=== PATIENT | female | born 1960 | race Caucasian/White ===

== ENCOUNTER 2025-03-10 19:20 | Emergency (ER) | payer OTHER, SELFPAY ==
--- OUTSIDE RECORDS SUMMARY | 2025-03-09 11:30 | XMS_ITS | Encounter Summary ---
Author Organization [facility] er Address [address] [place] [address] Care Team Providers Care Ultrasound Tester Name Role Phone Unavailable Primary Care Provider Unavailabl e Reason for Referral * Consultation (Routine) - Authorized Specialty Diagnoses / Procedures Referred By Roxanne guzman Referred To Contact Family Medicine Diagnoses BRBPR (bright red blood per rectum) Socorro Teague DNP, SKYE, COLLAR TURNER OPERATOR [address] [place] [address] Phone: tel: fax: [facility] [address] [address] Phone: tel: fax: Referral ID Status Reason Start Date Expiration Date Visits Requested Visits Authorized [id number] Authorized Specialty Services Required 03/09/2025 03/09/2026 1 1 Reason for Visit * Reason Comments Rectal Bleeding Constipation X1 week, taking laxa tives Encounter Details Date Type Department Care Team (Late st Contact Info) Description 03/09/2025 11:30 AM CDT Office Visit [facility] [address] [phone] Socorro Teague DNP, APRON MAN, COLLAR TURNER OPERATOR [address] [place] [id number] Blood in stool (Primary Dx) Social History Tobacco Use Types Packs/Day Years Used Date Smoking Tobacco: Former Cigarettes Smokeless Tobacco: Never Tobacco Cessation:Counseling Given: Not Answered Alcohol Use Standard Drinks/Week Comments Not Currently 0 (1 standard drink = 0.6 oz pur e alcohol) Comments No Sex and Gender Information Value Date Recorded Sex Assigned at Not on file Legal Sex Female 11:20 AM CDT Gender Identity Not on file Sexual Orientation Not on file documented as of this encounter Last Filed Vital Signs Vital Sign Reading Time Taken Comments Blood Pressure 139/70 03/09/2025 11:33 AM CDT Pulse 82 03/09/2025 11:33 AM CDT Temperature 36.6 C (97.8 F) 03/09/2025 11:33 AM CDT Respiratory Rate 18 03/09/2025 11:33 AM CDT Oxygen Saturation 95% 03/09/2025 11:33 AM CDT Inhaled Oxygen Concentration - - Weight 65.9 kg (145 lb 3.2 oz) 03/09/2025 11:33 AM CDT Height - - Body Mass Index - - documented in this encounter Progress Notes * Socorro Teague, MIA, APRON MAN, COLLAR TURNER OPERATOR - 03/09/2025 11:30 AM CDT Patient ID: Hanny Voss is a 65 y.o. year old female HPI Hanny Voss is a 65 y.o. year old female who presents to the [facility] with complaints of Chief Complaint Patient presents with Rectal Bleeding Constipation X1 week, taking laxatives Presents to the Acute Care clinic reporting 1 week onset of constipation. No history of same. Constipation relieved with OTC laxatives. Initially patient describes stools as black but then states this is not the case and she is having brown mucous discharge with blood in it. Onset was three days ago. Frequency of bowel movements: 2-3 per day for the past 2 days. Passing Small amount of stool eachtime. Notes stools are mucousy. Patient reports there is not pain with defecation. She denies recent NSAID or ASA use, recent change in diet, sick contacts, past GI issues or hemorrhoids. Risk for GI bleed includes: Travel from [place] 1 month ago, reported GI bleeding 6-7 years ago (unclear circumstances). Denies constitutional symptoms (fever, weight loss), nausea, vomiting, tenesmus, hematuria, burning, frequency, rashes, bruising, SOB, chest pain, dizziness, vertigo. Today's visit was facilitated via telephone benefits specialist recruiter throughout the entirety of the visit. The following portions of the patient's chart were reviewed in this encounter and updated as appropriate: Tobacco Allergies Meds Problems Med Hx Surg Hx OB Status Fam Hx Review of Systems Pertinent items are noted in HPI. Objective Blood pressure 139/70, pulse 82, temperature 36.6 ??C (97.8 ??F), temperature source Temporal, resp. rate 18, weight 65.9 kg (145 lb 3.2 oz), SpO2 95%, not currently . Physical Exam Vitals and nursing note reviewed. Constitutional: Appearance: Normal appearance. HENT: Mouth/Throat: Mouth: Mucous membranes are moist. Eyes: Conjunctiva/sclera: Conjunctivae normal. Cardiovascular: Rate and Rhythm: Normal rate and regular rhythm. Heart sounds: Normal heart sounds. No murmur heard. Pulmonary: Effort: Pulmonary effort is normal. No respiratory distress. Breath sounds: Normal breath sounds. Abdominal: General: Bowel sounds are normal. There is no distension. Palpations: Abdomen is soft. There is no mass. Tenderness: There is abdominal tenderness. There is no right CVA tenderness, left CVA tenderness orguarding. Genitourinary: Rectum: Normal. Comments: No external hemorrhoids or anal fissure noted. No active bleeding. Rectal vault empty. Good tone. Musculoskeletal: General: Normal range of motion. Cervical back: Normal range of motion and neck supple. Right lower leg: No edema. Left lower leg: No edema. Skin: General: Skin is warm and dry. Neurological: General: No focal deficit present. Mental Status: She is alert and oriented to person, place, and time. Psychiatric: Mood and Affect: Mood normal. Behavior: Behavior normal. Assessment/Plan Diagnoses and all orders for this visit: Blood in stool Patient overall looks well on exam with normal vital signs. She is without alarm symptoms such as dizziness, SOB however is over the ago of 48 with past history of GI bleeding. Unknown if colon cancer screening is UTD. Differential diagnosis to include hemorrhoids, diverticulosis, colorectal cancer, colitis, IBS. Plan to obtain lab work to risk stratify. Hgb <9 should be referred to ED for expedient evaluation. Red flags (worsening abdominal pain, fevers, N/V, dizziness, SOB, chest pain, dizziness, ect) that would indicate the need for urgent/emergent reevaluation were reviewed prior to dismissal. She should follow up with family medicine in about 1 week for recheck. Omeprazole for GI prophylaxis. She was instructed to avoid medications such as NSAIDs and aspirin. The patient was discharged in stable condition with all questions being answered and addressed to the best of my ability. There were no apparent learning barriers identified when reviewing discharge instructions and discharge recommendations. Strict return precautions were reviewed in detail with The patient. When to proceed to the Emergency Room was reviewed with The patient. The patient verbalized understanding of the return precautions. Recommended close follow up with their Primary Care Provider. If they do not have a Primary Care Provider I have placed a referral to primary care so they can establish care. The patient verbalized understanding and agreement with the diagnosis and treatment plan. - CBC Branch Off w/Diff; Future - Comprehensive metabolic panel; Future - Immunochemical Fecal Occult Blood (iFOBT)- outpatient; Future - Protime-INR; Future - Ambulatory referral to Family Practice - omeprazole (PriLOSEC) [address] capsule; Take 1 capsule (20 mg total) by mouth 1 (one) time each day Do not crush or chew. Preferred method of communication: telephone documented in this encounter Plan of Treatment Scheduled Orders Name Type Priority Associated Diagnoses Orde r Schedule Immunochemical Fecal Occult Blood (iFOBT)- outpatient Lab Routine Blood in stool 1 Occurrences starting 03/09/2025 until 03/09/2026 Scheduled Referrals Name Type Priority Associated Diagnoses Order Schedule Ambulatory referral to Family Practice Outpatient Referral Routine Blood in stool Ordered: 03/09/2025 documented as of this encounter Results * Comprehensive metabolic panel (03/09/2025 12:55 PM CDT) Total Protein 8.2 6.3 - 8.2 g/dL 03/09/2025 4:35 PM CDT [facility] Albumin, Serum 4.6 3.5 - 5.0 g/dL 03/09/2025 4:35 PM CDT [facility] Total Bilirubin <0.7 0.1 - 1.0 mg/dL 03/09/2025 4:35 PM CDT [facility] AST 24 8 - 43 U/L 03/09/2025 4:35 PM [facility] Alkaline Phosphatase 75 38 - 128 U/L 03/09/2025 4:35 PM [facility] ALT (SGPT) 20 0 - 34 U/L 03/09/2025 4:35 PM [facility] Sodium 142 135 - 145 mEq/L 03/09/2025 4:35 PM [facility] Potassium 4.3 3.5 - 5.1 mEq/L 03/09/2025 4:35 PM [facility] Chloride 104 98 - 107 mEq/L 03/09/2025 4:35 PM [facility] CO2 27 22 - 29 mmol/L 03/09/2025 4:35 PM [facility] BUN 12 5 - 25 mg/dL 03/09/2025 4:35 PM [facility] Creatinine 0.71 0.40 - 1.20 mg/dL 03/09/2025 4:35 PM [facility] Glucose 97 70 - 100 mg/dL 03/09/2025 4:35 PM [facility] Calcium, Total,S 9.0 8.4 - 10.2 mg/dL 03/09/2025 4:35 PM [facility] Anion Gap 11 4 - 13 03/09/2025 4:35 PM [facility] Comment: The anion gap is calculated with the following formula: AGAP = Na ? (Cl + CO2). Fasting? No 03/09/2025 12:55 PM [facility] Blood (Blood, Venous) 03/09/2025 12:55 PM CDT 03/09/2025 3:11 PM T us Socorro Teague DNP, APRON MAN, COLLAR TURNER OPERATOR LAB BLOOD ORDERABLES Final Result [facility] [address] [place] [address] documented in this encounter Visit Diagnoses Diagnosis Blood in stool- Primary documented in this encounter
--- OUTSIDE RECORDS SUMMARY | 2025-03-09 12:45 | XMS_ITS | Encounter Summary ---
Author Organization [facility] er Address [address] [place] [address] Care Team Providers Care Division Traffic Superintendent Name Role Phone Unavailable Primary Care Provider Unavailabl e Encounter Details Date Type Department Care Team (Late st Contact Info) Description 03/09/2025 12:45 PM CDT Lab [place] [facility] [address] [place] [address] Blood in stool Social History Tobacco Use Types Packs/Day Years Used Date Smoking Tobacco: Former Cigarettes Smokeless Tobacco: Never Alcohol Use Standard Drinks/Week Comments Not Currently 0 (1 standard drink = 0.6 oz pur e alcohol) Comments No Sex and Gender Information Value Date Recorded Sex Assigned at Not on file Legal Sex Female 11:20 AM CDT Gender Identity Not on file Sexual Orientation Not on file documented as of this encounter Plan of Treatment Not on file documented as of this encounter Procedures Procedure Name Priority Date/Time Associated Diagnosis Comments ESTIMATED GLOMERULAR FILTRATION RATE (EGFR) Routine 03/09/2025 12:55 PM CDT Blood in stool CBC WITH AUTO DIFFERENTIAL Routine 03/09/2025 12:55 PM CDT COMPREHENSIVE METABOLIC PANEL Routine 03/09/2025 12:55 PM CDT Blood in stool documented in this encounter Results * Estimated Glomerular Filtration Rate (eGFR) (03/09/2025 12:55 PM CDT) Estimated Glomerular Filtration Rate (eGFR) >60 03/09/2025 4:35 PM CDT [facility] Comment: GFR calculated from serum creatinine value Chronic Kidney Disease less than 60 mL/min/1.73 m2 Kidney Failure less than 15 mL/min/1.73 m2 Note: effective 08/28/2022: 2020 CKD-EPI Equation used 03/09/2025 12:5 5 PM CDT 03/09/2025 12:55 PM CDT Socorro Teague DNP, ASSEMBLY ASSOCIATE, CORE COMPOSER FEEDER LAB BLOOD ORDERABLES Final Result [facility] [address] [place] [address] * (ABNORMAL) CBC auto differential (03/09/2025 12:55 PM CDT) WBC 12.3(H) 3.5 - 10.5 K/uL 03/09/2025 3:[address] [facility] RBC 4.92 3.90 - 5.00 M/uL 03/09/2025 3:[address] [facility] Hemoglobin 14.6 12.0 - 15.5 g/dL 03/09/2025 3:[address] [facility] Hematocrit 44.6(H) 35.0 - 44.0 % 03/09/2025 3:[address] [facility] Platelets 309 150 - 450 K/uL 03/09/2025 3:[address] [facility] MCV 90.7 81.6 - 98.3 fL 03/09/2025 3:[address] [facility] MCH 29.7 26.0 - 32.0 pg 03/09/2025 3:[address] [facility] MCHC 32.7 32.0 - 36.0 g/dL 03/09/2025 3:[address] [facility] RDW 13.3 11.9 - 15.5 % 03/09/2025 3:[address] [facility] NRBC %, Automated 0 % 03/09/2025 3:[address] [facility] NRBC Absolute, Autmated 0.00 K/uL 03/09/2025 3:[address] [facility] Comment: 0-4 Days: 0.01 -0.02 >=5 Days: 0.00 Neutrophils 64.4 % 03/09/2025 3:[address] [facility] Absolute Neutrophils 7.9(H) 1.7 - 7.0 K/uL 03/09/2025 3:[address] [facility] Lymphocytes % 24.0 % 03/09/2025 3:[address] [facility] Absolute Lymphocytes 3.0(H) 0.9 - 2.9 K/uL 03/09/2025 3:[address] [facility] Monocytes % 9.5 % 03/09/2025 3:[address] [facility] Monocytes Absolute 1.2(H) 0.3 - 0.9 K/uL 03/09/2025 3:[address] [facility] Eosinophils 1.0 % 03/09/2025 3:[address] [facility] Absolute Eosinophils 0.1 0.1 - 0.5 K/uL 03/09/2025 3:[address] [facility] Basophils 0.7 % 03/09/2025 3:[address] [facility] Absolute Basophils 0.1 0.0 - 0.1 K/uL 03/09/2025 3:[address] [facility] Immature Leukocytes 0.4 % 03/09/2025 3:[address] [facility] Immature Leukocytes Absolute 0.05(H) 0.00 - 0.04 K/uL 03/09/2025 3:[address] [facility] 03/09/2025 12:5 5 PM CDT 03/09/2025 3:11 PM T us Socorro Teague DNP, ASSEMBLY ASSOCIATE, CORE COMPOSER FEEDER LAB BLOOD ORDERABLES Final Result [facility] [address] [place] [address] * Comprehensive metabolic panel (03/09/2025 12:55 PM CDT) Total Protein 8.2 6.3 - 8.2 g/dL 03/09/2025 4:[address] [facility] Albumin, Serum 4.6 3.5 - 5.0 g/dL 03/09/2025 4:[address] [facility] Total Bilirubin <0.7 0.1 - 1.0 mg/dL 03/09/2025 4:[address] [facility] AST 24 8 - 43 U/L 03/09/2025 4:[address] [facility] Alkaline Phosphatase 75 38 - 128 U/L 03/09/2025 4:[address] [facility] ALT (SGPT) 20 0 - 34 U/L 03/09/2025 4:[address] [facility] Sodium 142 135 - 145 mEq/L 03/09/2025 4:[address] [facility] Potassium 4.3 3.5 - 5.1 mEq/L 03/09/2025 4:[address] [facility] Chloride 104 98 - 107 mEq/L 03/09/2025 4:[address] [facility] CO2 27 22 - 29 mmol/L 03/09/2025 4:[address] [facility] BUN 12 5 - 25 mg/dL 03/09/2025 4:[address] [facility] Creatinine 0.71 0.40 - 1.20 mg/dL 03/09/2025 4:[address] [facility] Glucose 97 70 - 100 mg/dL 03/09/2025 4:[address] [facility] Calcium, Total,S 9.0 8.4 - 10.2 mg/dL 03/09/2025 4:[address] [facility] Anion Gap 11 4 - 13 03/09/2025 4:[address] [facility] Comment: The anion gap is calculated with the following formula: AGAP = Na ? (Cl + CO2). Fasting? No 03/09/2025 12:[address] [facility] Blood (Blood, Venous) 03/09/2025 12:55 PM CDT 03/09/2025 3:11 PM CDT us Socorro Teague DNP, ASSEMBLY ASSOCIATE, CORE COMPOSER FEEDER LAB BLOOD ORDERABLES Final Result [facility] [address] [place] [address] documented in this encounter Visit Diagnoses Diagnosis Blood in stool documented in this encounter
[2025-03-10 19:42] VITALS: BP 175/83; PULSE 75; RESP 16; TEMP 36.2; O2SAT 95
--- NOTE | 2025-03-10 20:01 | CRLHL7_ITS ---
For Patients: As a result of the Cures Act, medical imaging exams and procedure reports are released immediately into your electronic medical record. You may view this report before your referring provider. If you have questions, please contact your health care provider. Indication: Stomach pain Technique: Single view of the abdomen Comparison: None Findings/Impression: No acute radiographic abnormality appreciated. Dictated by Yuriy Rutledge MD @ 03/10/2025 9:05:20 PM (Electronically Signed)
--- NOTE | 2025-03-10 20:05 | ED.GENADULT ---
HPI - General Adult General Chief complaint: Abdominal Pain Stated complaint: Stomach upset, pain Time Seen by Provider: 03/10/25 19:47 Source: patient Mode of arrival: ambulatory Limitations: no limitations History of Present Illness HPI narrative: 65-year-old female presenting today with abdominal cramping located in the lower abdomen, bilaterally. This started earlier today. She also had episodes of diarrhea for about a week and and then she became constipated for most of this week. She states that she has hard small bowel movements but she does have frequent episodes of mucousy output that is pink tinged. She went to the [facility] yesterday where she had a thorough workup including blood work and a rectal exam and she states that everything came back normal and she was told to take Colace. She states she has had 4 doses of Colace since yesterday morning. Has not changed her bowel habits. In the cramping has become worse. She denies any nausea or vomiting. No fevers or chills. [place] has been in the [place], is visiting from [place]. She has been gaining weight since she has been here. Review of Systems Status of ROS: Reports: 10 or more systems reviewed and unremarkable except as noted in History and below [facility] Social History Smoking Status: Never smoker Do you use any of these nicotine containing products: None Second hand tobacco smoke exposure: No How often do you have a drink containing alcohol: never How often do you have six or more drinks on one occasion: Never AUDIT-C Alcohol total score: 0 Non-prescribed substance use: denies use Exam Narrative: Exam Narrative: Well-nourished well-developed patient in no acute distress. Alert and oriented. Answers questions appropriately. Mood and affect are appropriate. Thoughts are goal oriented and rational. No tangential or magical thinking noted. Patient speaks in full sentences without needing to catch her breath. HEENT: Normocephalic atraumatic. Pupils are equally round reactive to light. Extraocular muscles are intact. Conjunctivae are moist without any icterus noted. Moist mucous membranes. Posterior pharynx is normal. Cardiovascular: Heart is regular rate and rhythm S1 and S2 are present without any murmurs. Lungs: Clear to auscultation bilaterally no wheezes rhonchi or rales are appreciated. Patient takes deep breaths without any discomfort. Abdomen: Soft and nontender with normal bowel sounds. Slightly distended. Extremities: Bilateral lower extremities are without edema. Skin: Well perfused without any obvious rashes. Const: Vital Signs, click to edit/add: Vital Signs - 24 hr 03/10/25 19:42 Temperature 97.2 F L Pulse Rate [Right Pulse Oximeter] 75 Respiratory Rate 16 Blood Pressure [Le ft Upper Arm] 175/83 H Pulse Oximetry 95 Oxygen Delivery Me thod Room Air Course Course ED Course: Given that she had a workup yesterday where everything was found to be normal according to the patient and her son, we did not repeat that today. We did however do an abdominal x-ray which read by me, shows a moderate stool burden. Vital Signs Vital signs: Initial Vital Signs Temperature 97.2 F L 03/10/25 19:42 Temperature Source Temporal Artery Scan 03/10/25 19:42 Pulse Rate 75 03/10/25 19:42 Respiratory Rate 16 03/10/25 19:42 Blood Pressure 175/83 H 03/10/25 19:42 Blood Pressure Mean 113 H 03/10/25 19:42 Blood Pressure Position Semi-Fowlers 03/10/25 19:42 Pulse Oximetry 95 03/10/25 19:42 Oxygen Delivery Method Room Air 03/10/25 19:42 Vital Signs Temperature 97.2 F L 03/10/25 19:42 Pulse Rate 75 03/10/25 19:42 Respiratory Rate 16 03/10/25 19:42 Blood Pressure 175/83 H 03/10/25 19:42 Pulse Oximetry 95 03/10/25 19:42 Oxygen Delivery Method Room Air 03/10/25 19:42 Temperature 97.2 F L 03/10/25 19:42 Pulse Rate 75 03/10/25 19:42 Respiratory Rate 16 03/10/25 19:42 Blood Pressure 175/83 H 03/10/25 19:42 Pulse Oximetry 95 03/10/25 19:42 Oxygen Delivery Method Room Air 03/10/25 19:42 Medical Decision Making MDM Narrative Medical decision making narrative: 65-year-old female with constipation. Will treat with MiraLax b.i.d. until she has more regular bowel movements. Can continue Colace as prescribed. I do recommend she bring in stool sample since she is having this mucousy output. Imaging Data Abdominal x-ray: Attestation: I have reviewed the pertinent imaging results. Radiologist's impression: Indication: Stomach pain Technique: Single view of the abdomen Comparison: None Findings/Impression: No acute radiographic abnormality appreciated. Discharge Plan Discharge Clinical Impression: Constipation Patient Disposition: Home, Self-Care Condition: Stable Additional Instructions: Start MiraLax 2 scoop fulls per day until bowel movements are more regular than can decrease to 1 scoop full per day. Can continue taking Colace as prescribed. You will be sent home today with a stool collecting kit-bring that back in so we can make sure there is no infection in the stool. If that test is normal, I do recommend you follow-up with your primary care provider to schedule a colonoscopy. Follow Up/Referrals: Provider,Not a Local [Primary Care Provider, Family Practice] Stand Alone Forms: [employer] jobs Info Instructions
--- OUTSIDE RECORDS SUMMARY | 2025-03-10 20:25 | XMS_ITS | Encounter Summary ---
Author Organization [facility] er Address [address] [place] [address] Care Team Providers Care Support Services Manager Name Role Phone Unavailable Primary Care Provider Unavailabl e Encounter Details Date Type Department Care Team (Late st Contact Info) Description 03/09/2025 Orders Only [facility] [address] [phone] Socorro Teague, DNP, LINE HELPER, OCCUPATIONAL HEALTH AND SAFETY ADVISER [address] [place], [place] [id number] Blood in stool (Primary Dx) Social History [...] as of this encounter Plan of Treatment Scheduled Orders Name Type Priority Associated Diagnoses Orde r Schedule Protime-INR Lab Routine Blood in stool Expected: 03/09/2025, Expires: 03/09/2026 documented as of this encounter Visit Diagnoses Diagnosis Blood in stool- Primary documented in this encounter
--- OUTSIDE RECORDS SUMMARY | 2025-03-10 20:25 | XMS_ITS | Encounter Summary ---
Author Organization [facility] er Address [address] [place] [address] Care Team Providers Care Chauffeur [employer] Limousine Name Role Phone Unavailable Primary Care Provider Unavailabl e Encounter Details Date Type Department Care Team (Latest Contact Info) Description 03/10/2025 Results Follow-Up [facility] [address] [place] [phone] Socorro Teague, DNP, FURNACE COMBUSTION ANALYST, HOOP RIVETING MACHINE OPERATOR HELPER [address] [place] [address] CBC auto differential Social History Tobacco Use Types Packs/Day Years [...] on file documented as of this encounter Visit Diagnoses Not on filedocumented in this encounter
--- OUTSIDE RECORDS SUMMARY | 2025-03-10 20:25 | XMS_ITS | Clinical Summary ---
Author Organization [facility] er Address [address] [place] [address] Care Team Providers Care Lidder Name Role Phone Unavailable Primary Care Provider Unavailabl e Allergies No known active allergies Medications omeprazole (PriLOSEC) [address] capsuleIndicati ons:Blood in stool Take 1 capsule (20 mg total) by mouth 1 (one) time each day Do not crush or chew. 30 capsule 03/09/2025 Active Active Problems No known active problems Encounters Date Type Department Care Team Description 03/10/2025 Results Follow-Up [facility] [address] [facility] [address] [place] [phone] Socorro Teague, DNP, SUPPORT ASSISTANT, E COMMERCE ARCHITECT CBC auto differential 03/09/2025 12:45 PM CDT Lab [place] [facility] [address] [facility] [address] [place] [phone] Blood in stool 03/09/2025 11:30 AM CDT Office Visit [facility] [address] [facility] [address] [place] [phone] Socorro Teague, DNP, SUPPORT ASSISTANT, E COMMERCE ARCHITECT Blood in stool (Primary Dx) 03/09/2025 Orders Only [facility] [address] [facility] [address] [place] [phone] Socorro Teague, DNP, SUPPORT ASSISTANT, E COMMERCE ARCHITECT Blood in stool (Primary Dx) from Last 3 Months Social History Tobacco Use Types Packs/Day Years [...] on file Sexual Orientation Not on file Last Filed Vital Signs Vital Sign Reading [...] - - Body Mass Index - - Plan of Treatment Health Maintenance Due Date Last Done Comments Bone Density Scan 1958 CT Colonography 1958 Colonoscopy 1958 Colorectal Cancer Screening 1958 FIT-DNA 1958 Mammogram 1958 Sigmoidoscopy 1958 iFOBT 1958 Fall Risk Performed 1976 DTaP,Tdap,and Td Vaccines (1 - Tdap) 1977 Pneumococcal Vaccine: 50+ Ye ars (1 of 1 - PCV) 2008 Zoster Vaccines (1 of 2) 2008 COVID-19 Vaccine (1 - 2023-2 5 season) 2024 Influenza Vaccine (#1) 2025 HPV Vaccines Aged Out No longer eligi ble based on patient's age to complete this topic Procedures Procedure Name Priority Date/Time Associated Diagnosis Comments ESTIMATED GLOMERULAR FILTRATION RATE (EGFR) Routine 03/09/2025 12:55 PM CDT Blood in stool CBC WITH AUTO DIFFERENTIAL Routine 03/09/2025 12:55 PM CDT COMPREHENSIVE METABOLIC PANEL Routine 03/09/2025 12:55 PM CDT Blood in stool from Last 3 Months Results * Estimated Glomerular Filtration Rate (eGFR) (03/09/2025 12:55 PM CDT) [facility] Estimated Glomerular Filtration Rate (eGFR) >60 03/09/2025 4:35 PM T [facility] Comment: GFR calculated from serum creatinine value Chronic Kidney Disease less than 60 mL/min/1.73 m2 Kidney Failure less than 15 mL/min/1.73 m2 Note: effective 08/28/2022: 2020 CKD-EPI Equation used 03/09/2025 12:5 5 PM CDT 03/09/2025 12:55 PM CDT Socorro Teague DNP, SUPPORT ASSISTANT, E [employer]ERCE ARCHITECT LAB BLOOD ORDERABLES Final Result [facility] [address] [place] [id number] * (ABNORMAL) CBC auto differential (03/09/2025 12:55 PM CDT) [facility] WBC 12.3(H) 3.5 - 10.5 K/uL 03/09/2025 3:26 PM [facility] RBC 4.92 3.90 - 5.00 M/uL 03/09/2025 3:26 PM [facility] Hemoglobin 14.6 12.0 - 15.5 g/dL 03/09/2025 3:26 PM [facility] Hematocrit 44.6(H) 35.0 - 44.0 % 03/09/2025 3:26 PM [facility] Platelets 309 150 - 450 K/uL 03/09/2025 3:26 PM [facility] MCV 90.7 81.6 - 98.3 fL 03/09/2025 3:26 PM [facility] MCH 29.7 26.0 - 32.0 pg 03/09/2025 3:26 PM [facility] MCHC 32.7 32.0 - 36.0 g/dL 03/09/2025 3:26 PM [facility] RDW 13.3 11.9 - 15.5 % 03/09/2025 3:26 PM [facility] NRBC %, Automated 0 % 03/09/2025 3:26 PM [facility] NRBC Absolute, Autmated 0.00 K/uL 03/09/2025 3:26 PM [facility] Comment: 0-4 Days: 0.01 -0.02 >=5 Days: 0.00 Neutrophils 64.4 % 03/09/2025 3:26 PM [facility] Absolute Neutrophils 7.9(H) 1.7 - 7.0 K/uL 03/09/2025 3:26 PM [facility] Lymphocytes % 24.0 % 03/09/2025 3:26 PM [facility] Absolute Lymphocytes 3.0(H) 0.9 - 2.9 K/uL 03/09/2025 3:26 PM [facility] Monocytes % 9.5 % 03/09/2025 3:26 PM [facility] Monocytes Absolute 1.2(H) 0.3 - 0.9 K/uL 03/09/2025 3:26 PM [facility] Eosinophils 1.0 % 03/09/2025 3:26 PM [facility] Absolute Eosinophils 0.1 0.1 - 0.5 K/uL 03/09/2025 3:26 PM [facility] Basophils 0.7 % 03/09/2025 3:26 PM [facility] Absolute Basophils 0.1 0.0 - 0.1 K/uL 03/09/2025 3:26 PM [facility] Immature Leukocytes 0.4 % 03/09/2025 3:26 PM [facility] Immature Leukocytes Absolute 0.05(H) 0.00 - 0.04 K/uL 03/09/2025 3:26 PM [facility] 03/09/2025 12:5 5 PM CDT 03/09/2025 3:11 PM T us Socorro Teague DNP, SUPPORT ASSISTANT, E [employer]ERCE ARCHITECT LAB BLOOD ORDERABLES Final Result [facility] [address] [place] [address] * Comprehensive metabolic panel (03/09/2025 12:55 PM T) Total Protein 8.2 6.3 - 8.2 g/dL 03/09/2025 4:35 PM [facility] Albumin, Serum 4.6 3.5 - 5.0 g/dL 03/09/2025 4:35 PM [facility] Total Bilirubin <0.7 0.1 - 1.0 mg/dL 03/09/2025 4:35 PM [facility] AST 24 8 - 43 U/L 03/09/2025 4:35 PM [facility] Alkaline Phosphatase 75 38 - 128 U/L 03/09/2025 4:35 PM [facility] ALT (SGPT) 20 0 - 34 U/L 03/09/2025 4:35 PM [facility] Sodium 142 135 - 145 mEq/L 03/09/2025 4:35 PM [facility] Potassium 4.3 3.5 - 5.1 mEq/L 03/09/2025 4:35 PM [facility] Chloride 104 98 - 107 mEq/L 03/09/2025 4:35 PM [facility] CO2 27 22 - 29 mmol/L 03/09/2025 4:35 PM [facility] BUN 12 5 - 25 mg/dL 03/09/2025 4:35 PM [facility] Creatinine 0.71 0.40 - 1.20 mg/dL 03/09/2025 4:35 PM [facility] Glucose 97 70 - 100 mg/dL 03/09/2025 4:35 PM [facility] Calcium, Total,S 9.0 8.4 - 10.2 mg/dL 03/09/2025 4:35 PM [facility] Anion Gap 11 4 - 13 03/09/2025 4:35 PM CDT [facility] Comment: The anion gap is calculated with the following formula: AGAP = Na ? (Cl + CO2). Fasting? No 03/09/2025 12:55 PM CDT [facility] Blood (Blood, Venous) 03/09/2025 12:55 PM CDT 03/09/2025 3:11 PM CDT us Socorro Teague DNP, SUPPORT ASSISTANT, E [employer]ER[employer] ARCHITECT LAB BLOOD ORDERABLES Final Result [facility] [address] [place] [address] from Last 3 Months
[2025-03-10 21:39] VITALS: BP 117/63; PULSE 74; RESP 16; TEMP 36.6
== END 2025-03-10 21:40 | disposition home or self-care (01) ==
PROVIDERS: Emergency Provider Family Medicine
DX: K59.00 Constipation, unspecified (principal)
CPT/HCPCS: 74018; 87045; 87046; 87427; 99283; 99284